=== PATIENT | female | born 1950 | race Two or more races ===

== ENCOUNTER → 2018-07-04 | Day surgery (SDC) | payer OTHER ==
[~2018-07-04] MED LIST: ALENDRONATE SOD70 MG PO; GABAPENTIN100 MG PO; LANTUS SOL100 UNIT/1; LOSARTAN POTASS25 MG PO; MONTELUKAST SOD10 MG PO; SYNTHROID50 MCG PO; TOPROL XL100 MG PO; VENTOLIN HFA18 GM IH
== END | disposition home or self-care (01) ==
LOC: ADM 07-02 13:30 → CIR.AMB 06:05
DX: H71.22 Cholesteatoma of mastoid, left ear (principal)